=== PATIENT | female | born 1995 | race Hispanic/Latino ===

== ENCOUNTER → 2017-09-01 | Outpatient (REF) | payer OTHER | LOC: M SFHCLERA 16:31 | DX: R30.0 Dysuria (principal) | CPT/HCPCS: 87086 ==

== ENCOUNTER → 2018-06-02 | Outpatient (REF) | payer OTHER | LOC: M SFHCLERA 10:38 | PROVIDERS: ATTEND Physician Assistant | DX: R30.0 Dysuria (principal) ==